=== PATIENT | female | born 2000 | race American Indian/Alaskan Native ===

== ENCOUNTER 2021-11-12 14:42 | Emergency (ER) | payer SELFPAY ==
[2021-11-12] MEDS ORDERED: SODIUM CHLORIDE 0.9% 1000 ML 1,000 ML IV ONE (15:03)
--- NOTE | 2021-11-12 15:11 | Emergency Department Report ---
ED Psych HPI - General Chief Complaint: Psych Stated Complaint: SI ATTEMPT/OVERDOSE Time Seen by Provider: 11/12/21 14:51 Source: EMS Mode of arrival: Stretcher - History of Present Illness Initial Comments: Patient presents as an overdose. She called an ambulance because she had overdosed on Zoloft and Tylenol. She states that she took approximately 60 Zoloft and 7 Tylenol. She wanted to kill herself. She states that her boyfriend . She has not been able to cope with that. She has been drinking significant amounts of alcohol in addition to the overdose today. Patient states that her dog was barking. She states that she decided that she needed to call EMS. She states that she "gassed she wanted help." She overdosed on these medicines approximately 1:30 PM. She states that she did not take anything else. She still wants to . Patient denies cutting herself. She is not hearing voices. - Related Data Allergies Allergy/AdvReac Type Severity Reaction Status Date / Time No Known Allergies Allergy Unverified 11/12/21 14:58 ED Review of Systems ROS: Stated complaint: SI ATTEMPT/OVERDOSE Other details as noted in HPI Comment: All other systems reviewed and negative Constitutional: denies: fever Eyes: denies: eye pain ENT: denies: throat pain Respiratory: denies: cough Cardiovascular: denies: chest pain Endocrine: denies: unexplained weight loss Gastrointestinal: denies: abdominal pain Genitourinary: denies: dysuria Musculoskeletal: denies: back pain Skin: denies: rash Neurological: denies: headache Psychiatric: as per HPI Hematological/Lymphatic: denies: easy bruising ED Past Medical Hx - Past Medical History Previous Medical History?: Yes Hx Psychiatric Treatment: Yes (DEPRESSION) - Surgical History Past Surgical History?: No - Family History Family history: no significant ED Physical Exam - General Limitations: No Limitations, Other (Pulse ox noted and normal) General appearance: alert, in no apparent distress, obese - Head Head exam: Present: atraumatic, normocephalic - Eye Eye exam: Present: normal appearance, EOMI - ENT ENT exam: Present: normal orophraynx, normal external ear exam - Neck Neck exam: Present: normal inspection. Absent: meningismus - Respiratory Respiratory exam: Present: normal lung sounds bilaterally. Absent: respiratory distress - Cardiovascular Cardiovascular Exam: Present: regular rate, normal rhythm - GI/Abdominal GI/Abdominal exam: Present: soft. Absent: distended - Extremities Exam Extremities exam: Present: normal capillary refill - Back Exam Back exam: Absent: CVA tenderness (R), CVA tenderness (L) - Neurological Exam Neurological exam: Present: alert, oriented X3, CN II-XII intact. Absent: motor sensory deficit - Psychiatric Psychiatric exam: Present: flat affect, suicidal ideation - Skin Skin exam: Present: warm, dry ED Course Vital Signs 11/12/21 11/12/21 11/12/21 14:45 15:20 15:26 Temperature 98.5 F 98.2 F Pulse Rate 70 63 57 L Respiratory 16 13 17 Rate Blood Pressure Blood Pressure 133/92 101/60 [Left] O2 Sat by Pulse 99 100 Oximetry 11/12/21 11/12/21 11/12/21 15:30 15:46 16:00 Temperature Pulse Rate 59 L 55 L 61 Respiratory 13 12 18 Rate Blood Pressure 101/60 101/60 101/60 Blood Pressure [Left] O2 Sat by Pulse 99 100 100 Oximetry 11/12/21 11/12/21 11/12/21 16:16 16:30 16:46 Temperature Pulse Rate 58 L 62 57 L Respiratory 12 19 17 Rate Blood Pressure 101/60 101/60 101/60 Blood Pressure [Left] O2 Sat by Pulse 99 100 100 Oximetry 11/12/21 11/12/21 11/12/21 17:00 17:16 17:30 Temperature Pulse Rate 69 63 62 Respiratory 15 21 18 Rate Blood Pressure 107/48 107/48 102/52 Blood Pressure [Left] O2 Sat by Pulse 100 100 100 Oximetry 11/12/21 11/12/21 11/12/21 17:46 18:00 18:16 Temperature Pulse Rate 61 57 L 59 L Respiratory 16 15 17 Rate Blood Pressure 102/52 102/52 102/52 Blood Pressure [Left] O2 Sat by Pulse 100 100 100 Oximetry - Reevaluation(s) Reevaluation #1: 11/12/21 15:11 Labs were ordered. Patient was placed on a hold. Reevaluation #2: 11/12/21 17:21 Labs and EKG have been noted. We will repeat the Tylenol level in 10 minutes. Reevaluation #3: 11/12/21 18:56 Labs are noted. Psychiatric services has seen the patient and are planning on admission. ED Medical Decision Making - Lab Data Result diagrams: 11/12/21 15:09 11/12/21 15:09 Rhythm strip: Normal sinus rhythm without ectopy per monitor observe 10 seconds. - EKG Data -: EKG Interpreted by Me - EKG Data 11/12/21 17:21 EKG shows normal sinus rhythm at 59. Intervals are normal including a QRS of 96 and a QT corrected of 437. Patient has no ST or T wave change. There is no Q waves. This is a normal EKG. - Medical Decision Making Patient presents with depression and suicidal thoughts with a gesture. She attempted an overdose on multiple medications. She has been medically cleared. She does not have a 4-hour acetaminophen level that would require Mucomyst. She does not appear to be septic or toxic. There is no other ingestant besides what she reported, acetaminophen and Zoloft. Patient will be seen by psychiatric services again until she can be placed. We will continue to keep her from harm while here. She does not appear to be delusional or acutely psychotic. Critical Care Time: No Critical care attestation.: If time is entered above; I have spent that time in minutes in the direct care of this critically ill patient, excluding procedure time. ED Disposition Clinical Impression: Suicidal ideation Overdose Qualifiers: Encounter type: initial encounter Injury intent: intentional self-harm Qualified Code(s): T50.902A - Poisoning by unspecified drugs, medicaments and biological substances, intentional self-harm, initial encounter Disposition: 30 STILL A PATIENT Is pt being admited?: No Condition: Stable
[2021-11-12 16:03] LABS: Basophils # (Auto) 0.1 K/mm3 (0.0-0.1); Basophils % (Auto) 1.1 % (0.0-1.8); Eosinophils # (Auto) 0.1 K/mm3 (0.0-0.4); Eosinophils % (Auto) 0.7 % (0.0-4.3); Hematocrit 41.4 % (30.3-42.9); Hemoglobin 13.3 gm/dl (10.1-14.3); Lymphocytes # (Auto) 2.8 K/mm3 (1.2-5.4); Lymphocytes % (Auto) 27.2 % (13.4-35.0); Mean Corpuscular HGB Conc 32 % (30-34); Mean Corpuscular Volume 93 fl (79-97); Monocytes # (Auto) 0.8 K/mm3 (0.0-0.8); Red Blood Count 4.47 M/mm3 (3.65-5.03); Red Cell Distribution Width 13.4 % (13.2-15.2)
[2021-11-12 16:14] LABS: Platelet Count 198 K/mm3 (140-440)
[2021-11-12 16:18] LABS: Alanine Aminotransferase 15 units/L (7-56); Albumin 4.2 g/dL (3.9-5); BUN/Creatinine Ratio 13; Blood Urea Nitrogen 10 mg/dL (7-17); Calcium 9.7 mg/dL (8.4-10.2); Hemolysis Index 25
[2021-11-12 16:23] LABS: Amphetamine Screen,Urine Negative; Benzodiazepines Screen,Urine Negative; Cocaine Screen,Urine Negative; Methadone Screen,Urine Negative; Opiate Screen,Urine Negative
[2021-11-12 16:38] LABS: Cannabinoid Screen,Urine Positive
[2021-11-13] MEDS ORDERED: diphenhydrAMINE 25 MG CAP PO ONE (03:38)
[2021-11-13] MEDS ORDERED: WATER FOR IRRIG STERILE 250 ML BOTTLE IR ONE (07:20)
[2021-11-13] MEDS ORDERED: WATER FOR IRRIG STERILE 1,000 ML BOTTLE ONE (07:20)
[2021-11-13] MEDS ORDERED: NICOTINE 7 MG/24 HR PATCH TD ONE (20:16)
[2021-11-13 22:57] VITALS: BP 144/89
[2021-11-14] MEDS ORDERED: LORazepam 2 MG/ML VIAL IM PRN (08:46)
[2021-11-14] MEDS ORDERED: HALOPERIDOL LACTATE 5 MG/1 ML INJ IM PRN (08:58)
[2021-11-14] MEDS ORDERED: ZIPRASIDONE MESYLATE 20 MG VIAL IM ONE ×2 (09:13→10:00)
--- NOTE | 2021-11-14 10:12 | Electrocardiograph Report ---
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
--- NOTE | 2021-11-14 14:09 | Event Note ---
Date: 11/14/21 The patient was evaluated in the emergency department for symptoms described in the history of present illness. He/she was evaluated in the context of the global COVID-19 pandemic, which necessitated consideration that the patient might be at risk for infection with the virus that causes COVID-19. Institutional protocols and algorithms that pertain to the evaluation of patients at risk for COVID-19 are in a state of rapid change based on information released by regulatory bodies including the CDC and federal and state organizations. These policies and algorithms were followed during the patient's care in the emergency department. Please note that these policies, procedures and recommendations changed on a rapid basis. Laboratory studies, vital signs, nursing documentation, ER documentation, and psychiatric documentation are reviewed and appreciated. Nursing team reports that patient was accepted to [facility] this morning, and refused to be transported. As needed medications were ordered by the morning ER physician. The patient was placed in seclusion. I have personally evaluated the patient while she is in seclusion. She is breathing spontaneously, and in no acute distress. She is not agitated at this time The patient was deemed medically suitable for psychiatric disposition and placement during her initial ER evaluation. The patient continues to remain medically suitable for psychiatric placement and disposition. sHe is currently pending psychiatric placement. May consider trial of de-escalation of seclusion at this time. Should patient become agitated and belligerent, we will reevaluate the need for seclusion. Vital Signs 11/12/21 11/12/21 11/12/21 14:45 15:20 15:26 Temperature 98.5 F 98.2 F Pulse Rate 70 63 57 L Respiratory 16 13 17 Rate Blood Pressure Blood Pressure 133/92 101/60 [Left] O2 Sat by Pulse 99 100 Oximetry 11/12/21 11/12/21 11/12/21 15:30 15:46 16:00 Temperature Pulse Rate 59 L 55 L 61 Respiratory 13 12 18 Rate Blood Pressure 101/60 101/60 101/60 Blood Pressure [Left] O2 Sat by Pulse 99 100 100 Oximetry 11/12/21 11/12/21 11/12/21 16:16 16:30 16:46 Temperature Pulse Rate 58 L 62 57 L Respiratory 12 19 17 Rate Blood Pressure 101/60 101/60 101/60 Blood Pressure [Left] O2 Sat by Pulse 99 100 100 Oximetry 11/12/21 11/12/21 11/12/21 17:00 17:16 17:30 Temperature Pulse Rate 69 63 62 Respiratory 15 21 18 Rate Blood Pressure 107/48 107/48 102/52 Blood Pressure [Left] O2 Sat by Pulse 100 100 100 Oximetry 11/12/21 11/12/21 11/12/21 17:46 18:00 18:16 Temperature Pulse Rate 61 57 L 59 L Respiratory 16 15 17 Rate Blood Pressure 102/52 102/52 102/52 Blood Pressure [Left] O2 Sat by Pulse 100 100 100 Oximetry 11/12/21 11/12/21 11/12/21 18:30 18:46 19:00 Temperature Pulse Rate 54 L 59 L 57 L Respiratory 20 16 22 Rate Blood Pressure 102/52 102/52 116/63 Blood Pressure [Left] O2 Sat by Pulse 94 100 100 Oximetry 11/12/21 11/12/21 11/12/21 19:16 19:30 19:46 Temperature Pulse Rate 60 67 61 Respiratory 21 22 12 Rate Blood Pressure 116/63 116/63 116/63 Blood Pressure [Left] O2 Sat by Pulse 100 99 100 Oximetry 11/12/21 11/12/21 11/12/21 20:00 20:16 20:30 Temperature Pulse Rate 54 L 65 59 L Respiratory 18 16 19 Rate Blood Pressure 97/59 97/59 126/67 Blood Pressure [Left] O2 Sat by Pulse 100 99 100 Oximetry 11/12/21 11/12/21 11/12/21 20:46 21:00 21:16 Temperature Pulse Rate 62 58 L 61 Respiratory 20 14 14 Rate Blood Pressure 126/67 117/58 117/58 Blood Pressure [Left] O2 Sat by Pulse 100 100 100 Oximetry 11/12/21 11/12/21 11/12/21 21:30 21:46 22:00 Temperature Pulse Rate 72 Respiratory 10 L Rate Blood Pressure 117/58 117/58 117/58 Blood Pressure [Left] O2 Sat by Pulse 100 100 100 Oximetry 11/12/21 11/13/21 11/13/21 22:15 03:46 08:00 Temperature 98.4 F Pulse Rate 77 Respiratory 14 Rate Blood Pressure 117/58 117/58 Blood Pressure 130/81 [Left] O2 Sat by Pulse 99 100 99 Oximetry 11/13/21 11/14/21 11/14/21 22:56 05:56 10:49 Temperature 99.3 F Pulse Rate 79 Respiratory 18 18 Rate Blood Pressure Blood Pressure 144/89 [Left] O2 Sat by Pulse 99 99 96 Oximetry Lab Results 11/12/21 11/12/21 11/12/21 Range/Units 15:09 15:09 15:09 WBC 10.1 (4.5-11.0) K/mm3 RBC 4.47 (3.65-5.03) M/mm3 Hgb 13.3 (10.1-14.3) gm/dl Hct 41.4 (30.3-42.9) % MCV 93 (79-97) fl MCH 30 (28-32) pg MCHC 32 (30-34) % RDW 13.4 (13.2-15.2) % Plt Count 198 (140-440) K/mm3 Lymph % (Auto) 27.2 (13.4-35.0) % Stearns % (Auto) 8.0 H (0.0-7.3) % Eos % (Auto) 0.7 (0.0-4.3) % Baso % (Auto) 1.1 (0.0-1.8) % Lymph # (Auto) 2.8 (1.2-5.4) K/mm3 Stearns # (Auto) 0.8 (0.0-0.8) K/mm3 Eos # (Auto) 0.1 (0.0-0.4) K/mm3 Baso # (Auto) 0.1 (0.0-0.1) K/mm3 Seg Neutrophils % 63.0 (40.0-70.0) % Seg Neutrophils # 6.4 (1.8-7.7) K/mm3 Sodium (137-145) mmol/L Potassium (3.6-5.0) mmol/L Chloride (98-107) mmol/L Carbon Dioxide (22-30) mmol/L Anion Gap mmol/L BUN (7-17) mg/dL Creatinine (0.6-1.2) mg/dL Estimated GFR ml/min BUN/Creatinine Ratio % Glucose (65-100) mg/dL Calcium (8.4-10.2) mg/dL Total Bilirubin (0.1-1.2) mg/dL AST (5-40) units/L ALT (7-56) units/L Alkaline Phosphatase (35-129) units/L Total Protein (6.3-8.2) g/dL Albumin (3.9-5) g/dL Albumin/Globulin Ratio % TSH (0.270-4.200) mlU/mL HCG, Qual (Negative) Salicylates < 0.3 L (2.8-20.0) mg/dL Urine Opiates Screen Urine Methadone Screen Acetaminophen 20.9 (10.0-30.0) ug/mL Ur Barbiturates Screen Ur Phencyclidine Scrn Ur Amphetamines Screen U Benzodiazepines Scrn Urine Cocaine Screen U Marijuana (THC) Screen Drugs of Abuse Note Plasma/Serum Alcohol (0-0.07) % Coronavirus (PCR) (Negative) 11/12/21 11/12/21 11/12/21 Range/Units 15:09 15:09 15:09 WBC (4.5-11.0) K/mm3 RBC (3.65-5.03) M/mm3 Hgb (10.1-14.3) gm/dl Hct (30.3-42.9) % MCV (79-97) fl MCH (28-32) pg MCHC (30-34) % RDW (13.2-15.2) % Plt Count (140-440) K/mm3 Lymph % (Auto) (13.4-35.0) % Stearns % (Auto) (0.0-7.3) % Eos % (Auto) (0.0-4.3) % Baso % (Auto) (0.0-1.8) % Lymph # (Auto) (1.2-5.4) K/mm3 Stearns # (Auto) (0.0-0.8) K/mm3 Eos # (Auto) (0.0-0.4) K/mm3 Baso # (Auto) (0.0-0.1) K/mm3 Seg Neutrophils % (40.0-70.0) % Seg Neutrophils # (1.8-7.7) K/mm3 Sodium 137 (137-145) mmol/L Potassium 3.7 (3.6-5.0) mmol/L Chloride 103.8 (98-107) mmol/L Carbon Dioxide 17 L (22-30) mmol/L Anion Gap 20 mmol/L BUN 10 (7-17) mg/dL Creatinine 0.8 (0.6-1.2) mg/dL Estimated GFR > 60 ml/min BUN/Creatinine Ratio 13 % Glucose 107 H (65-100) mg/dL Calcium 9.7 (8.4-10.2) mg/dL Total Bilirubin 0.50 (0.1-1.2) mg/dL AST 15 (5-40) units/L ALT 15 (7-56) units/L Alkaline Phosphatase 87 (35-129) units/L Total Protein 7.5 (6.3-8.2) g/dL Albumin 4.2 (3.9-5) g/dL Albumin/Globulin Ratio 1.3 % TSH 0.646 (0.270-4.200) mlU/mL HCG, Qual (Negative) Salicylates (2.8-20.0) mg/dL Urine Opiates Screen Urine Methadone Screen Acetaminophen (10.0-30.0) ug/mL Ur Barbiturates Screen Ur Phencyclidine Scrn Ur Amphetamines Screen U Benzodiazepines Scrn Urine Cocaine Screen U Marijuana (THC) Screen Drugs of Abuse Note Plasma/Serum Alcohol < 0.01 (0-0.07) % Coronavirus (PCR) (Negative) 11/12/21 11/12/21 11/12/21 Range/Units 15:09 17:40 Unknown WBC (4.5-11.0) K/mm3 RBC (3.65-5.03) M/mm3 Hgb (10.1-14.3) gm/dl Hct (30.3-42.9) % MCV (79-97) fl MCH (28-32) pg MCHC (30-34) % RDW (13.2-15.2) % Plt Count (140-440) K/mm3 Lymph % (Auto) (13.4-35.0) % Stearns % (Auto) (0.0-7.3) % Eos % (Auto) (0.0-4.3) % Baso % (Auto) (0.0-1.8) % Lymph # (Auto) (1.2-5.4) K/mm3 Stearns # (Auto) (0.0-0.8) K/mm3 Eos # (Auto) (0.0-0.4) K/mm3 Baso # (Auto) (0.0-0.1) K/mm3 Seg Neutrophils % (40.0-70.0) % Seg Neutrophils # (1.8-7.7) K/mm3 Sodium (137-145) mmol/L Potassium (3.6-5.0) mmol/L Chloride (98-107) mmol/L Carbon Dioxide (22-30) mmol/L Anion Gap mmol/L BUN (7-17) mg/dL Creatinine (0.6-1.2) mg/dL Estimated GFR ml/min BUN/Creatinine Ratio % Glucose (65-100) mg/dL Calcium (8.4-10.2) mg/dL Total Bilirubin (0.1-1.2) mg/dL AST (5-40) units/L ALT (7-56) units/L Alkaline Phosphatase (35-129) units/L Total Protein (6.3-8.2) g/dL Albumin (3.9-5) g/dL Albumin/Globulin Ratio % TSH (0.270-4.200) mlU/mL HCG, Qual Negative (Negative) Salicylates (2.8-20.0) mg/dL Urine Opiates Screen Negative Urine Methadone Screen Negative Acetaminophen 12.7 (10.0-30.0) ug/mL Ur Barbiturates Screen Negative Ur Phencyclidine Scrn Negative Ur Amphetamines Screen Negative U Benzodiazepines Scrn Negative Urine Cocaine Screen Negative U Marijuana (THC) Screen Positive Drugs of Abuse Note Disclamer Plasma/Serum Alcohol (0-0.07) % Coronavirus (PCR) (Negative) 11/13/21 Range/Units Unknown WBC (4.5-11.0) K/mm3 RBC (3.65-5.03) M/mm3 Hgb (10.1-14.3) gm/dl Hct (30.3-42.9) % MCV (79-97) fl MCH (28-32) pg MCHC (30-34) % RDW (13.2-15.2) % Plt Count (140-440) K/mm3 Lymph % (Auto) (13.4-35.0) % Stearns % (Auto) (0.0-7.3) % Eos % (Auto) (0.0-4.3) % Baso % (Auto) (0.0-1.8) % Lymph # (Auto) (1.2-5.4) K/mm3 Stearns # (Auto) (0.0-0.8) K/mm3 Eos # (Auto) (0.0-0.4) K/mm3 Baso # (Auto) (0.0-0.1) K/mm3 Seg Neutrophils % (40.0-70.0) % Seg Neutrophils # (1.8-7.7) K/mm3 Sodium (137-145) mmol/L Potassium (3.6-5.0) mmol/L Chloride (98-107) mmol/L Carbon Dioxide (22-30) mmol/L Anion Gap mmol/L BUN (7-17) mg/dL Creatinine (0.6-1.2) mg/dL Estimated GFR ml/min BUN/Creatinine Ratio % Glucose (65-100) mg/dL Calcium (8.4-10.2) mg/dL Total Bilirubin (0.1-1.2) mg/dL AST (5-40) units/L ALT (7-56) units/L Alkaline Phosphatase (35-129) units/L Total Protein (6.3-8.2) g/dL Albumin (3.9-5) g/dL Albumin/Globulin Ratio % TSH (0.270-4.200) mlU/mL HCG, Qual (Negative) Salicylates (2.8-20.0) mg/dL Urine Opiates Screen Urine Methadone Screen Acetaminophen (10.0-30.0) ug/mL Ur Barbiturates Screen Ur Phencyclidine Scrn Ur Amphetamines Screen U Benzodiazepines Scrn Urine Cocaine Screen U Marijuana (THC) Screen Drugs of Abuse Note Plasma/Serum Alcohol (0-0.07) % Coronavirus (PCR) Negative (Negative)
== END 2021-11-14 17:10 ==
LOC: ED 14:42
DX: R45.851 Suicidal ideations (principal); T39.1X2A Poisoning by 4-Aminophenol derivatives, intentional self-harm, initial encounter; T43.222A Poisoning by selective serotonin reuptake inhibitors, intentional self-harm, initial encounter; Y92.89 Other specified places as the place of occurrence of the external cause; Z20.822 Contact with and (suspected) exposure to COVID-19
CPT/HCPCS: 36415; 80053; 80307; 84443; 84703; 85025; 93005; 93010; 96360; 96372; 99285; J1630; J2060; J3486; J7030; U0003; 80320; 99284; Q0162; G0480